=== PATIENT | male | born 1990 | race Caucasian/White ===

== ENCOUNTER 2025-03-07 20:55 | Emergency (ER) | payer OTHER, SELFPAY ==
[2025-03-07 20:56] VITALS: BP 149/90; PULSE 78; RESP 18; TEMP 36.9; O2SAT 98
[2025-03-07 20:58] VITALS: BMI 53.0
--- NOTE | 2025-03-07 21:06 | EDS_ITS ---
HPI <JAGUAR Winchester - Last Filed: 03/07/25 22:01> History of Present Illness Chief Complaint: Upper Extremity Injury Narrative Narrative: Patient was about 4 feet up on a ladder when he lost his balance and fell landing on the back of his right wrist. No head injury or LOC. Denies other injuries. No blood thinners. He has swelling over his wrist and limited extension due to pain. No weakness or numbness or tingling. He is right-hand dominant. PFSH <JAGUAR Winchester - Last Filed: 03/07/25 22:01> [facility] Medical History (Updated 03/07/25 @ 21:21 by JAGUAR Winchester) Brain bleed Medical History no medical history Home Medications ?Medication ?Instructions ?Recorded ?Last Taken ?Type hydrocodone-acetaminophen 5-325mg 1 tab PO Q6H PRN PRN Pain 3 days 03/07/25 Unknown Rx 5mg-325mg #12 TABLETS ondansetron 4 mg disintegrating 4 mg PO Q6H PRN nausea and 03/07/25 Unknown Rx tablet vomiting #12 tabs Allergy/AdvReac Type Severity Reaction Status Date / Time No Known Allergies Allergy Verified 03/07/25 20:58 Family History no significant family his Surgical History (Updated 03/07/25 @ 21:04 by Hiral Yoon) History of tonsillectomy and adenoidectomy Surgical History no surgical history Social History Smoking Status: Current every day smoker tobacco type: cigarettes ROS <JAGUAR Winchester - Last Filed: 03/07/25 22:01> ROS ED ROS Narrative Neuro: Negative for motor/sensory dysfunction. Skin: Negative for wound. Musc: Positive for right wrist pain, swelling, trauma. EXAM <JAGUAR Winchester - Last Filed: 03/07/25 22:01> Physical Exam Narrative Exam Narrative: CONST: Patient sitting in no acute distress. EYES: Normal inspection. HEAD: Normocephalic atraumatic. NECK: Normal inspection. RESP: No respiratory distress, CTAB. CVS: Regular rate and rhythm, no murmur, no gallop. SKIN: Color normal, no rash, warm, dry, intact. EXTREMITIES: Right dorsal wrist swelling and tenderness, limited extension due to pain. No tenderness of the shoulder elbow forearm or hand. Able to make a fist. Normal motor and sensory function in median radial and ulnar distributions. 2+ radial pulse and brisk cap refill. NEURO: Alert and answering questions appropriately. PSYCH: Normal affect. Const Vital Signs: 03/07/25 20:56 Temperature 98.4 F Temperature Source Temporal Pulse Rate 78 Respiratory Rate 18 Blood Pressure 149/90 H Blood Pressure Mean 109 Pulse Ox 98 Oxygen Delivery Method Room Air [facility] <JAGUAR Winchester - Last Filed: 03/07/25 22:01> [facility] Narrative Medical decision making narrative: Differential includes wrist contusion versus fracture Consults: Orthopedics Patient had mechanical fall injuring his right wrist. His dorsal wrist swelling and tenderness. Neurovascularly intact. X-ray shows a comminuted distal radius fracture and ulnar styloid fracture. There is very mild dorsal angulation. I consulted Dr. Davis who reviewed the films and said this does not require a hematoma block or reduction and to place a splint. I placed an AP Ortho-Glass splint. NVI before and after application. Prescribed Andover, given instructions to ice and elevate. Orthopedic follow-up provided. He was discharged in stable condition <Dr. Calixto Stewart DO - Last Filed: 03/07/25 22:53> [facility] Narrative Medical decision making narrative: Differential includes wrist contusion versus fracture Consults: Orthopedics Patient had mechanical fall injuring his right wrist. His dorsal wrist swelling and tenderness. Neurovascularly intact. X-ray shows a comminuted distal radius fracture and ulnar styloid fracture. There is very mild dorsal angulation. I consulted Dr. Davis who reviewed the films and said this does not require a hematoma block or reduction and to place a splint. I placed an AP Ortho-Glass splint. NVI before and after application. Prescribed Andover, given instructions to ice and elevate. Orthopedic follow-up provided. He was discharged in stable condition Attending note: I have personally performed a face to face assessment of the patient and have reviewed the AJAY note. I personally made/approved the management plan and take responsibility for the patient management. I performed a substantive portion of the visit including all aspects of the following. My puentes findings include: [id number] presents follow-up for foot ladder. Pain to right wrist. No head injuries. Exam GCS 15. Right upper extremity swelling dorsal wrist at the radius skin intact. No hand tenderness. No elbow tenderness. Three-view x-ray right wrist concerns for comminuted distal radius fracture interarticular with dorsal tilt. Mild styloid fracture. Discussed with orthopedist on-call Dr. Davis no reduction in the ED will place an AP splint and follow-up with him. Meds to bed with pain medications written. Discharge Plan Triage Chief Complaint: Upper Extremity Injury ED Midlevel Provider: Jodie Smith ED Provider: Calixto Stewart Dx/Rx/DC Orders Clinical Impression: Closed fracture of right distal radius, Fracture of right ulnar styloid, Fall from ladder Instructions: Distal Radius Fx Prescriptions: New hydrocodone-acetaminophen 5-325 mg tablet 1 tab PO Q6H PRN PRN (Reason: Pain) 3 Days Qty: 12 0RF ondansetron 4 mg tablet,disintegrating 4 mg PO Q6H PRN (Reason: nausea and vomiting) Qty: 12 0RF Primary Care Provider: Care Physician,No Primary Referrals: Lenin Davis MD [Med Staff - Active Staff] - NOT,DEFINED [Non-Staff] - Activity Restrictions/Additional Instructions: You can ice over your splint and elevate the arm to decrease swelling. Take Andover every 6 hours as needed for pain. This sometimes causes nausea or vomiting so I prescribed Zofran to take as needed. Andover also causes constipation so I recommend [id number] stool softeners or MiraLAX. Call the orthopedic doctor on Sunday to schedule an appointment. Print Language: Swedish Disposition Disposition: Home, Self Care Discharge Date/Time: 03/07/25 22:14
[2025-03-07] MEDS: HYDROcodone Bitartrate/Apap 5/325 Tablet PO (21:08)
[2025-03-07] MEDS: Ondansetron ODT 4 MG Tablet PO (21:08)
--- NOTE | 2025-03-07 21:12 | RAD_ITS ---
PROCEDURE: WRIST MIN 3 VIEWS 03/07/2025 REASON FOR EXAM: PAIN TECHNIQUE: 3 views of the right wrist COMPARISON: None FINDINGS: Bones: Comminuted and impacted fracture of the distal radius, as well as fracture involving the ulnar styloid. Joints: Normal alignment. Soft tissues: Soft tissue swelling. Other: RAD/Wrist min 3 Views IMPRESSION: Impacted and comminuted fracture of the distal radius, as well as fracture invo lving the ulnar styloid. There is associated soft tissue swelling. Reading Location: [facility]
--- NOTE | 2025-03-07 21:29 | CON.PCM.OR_ITS ---
HPI Consult Data Date of Consult: 03/07/25 HPI Narrative HPI Narrative: NICOLE GAINES, is a 34 M who presents with a right distal radius fracture. Per ED provider 925pm today. Closed nvi. Wondering about utility of a closed reduction [facility] Medical History (Updated 03/07/25 @ 21:21 by JAGUAR Winchester) Brain bleed Medical History no medical history Allergy/AdvReac Type Severity Reaction Status Date / Time No Known Allergies Allergy Verified 03/07/25 20:58 Family History no significant family his Surgical History (Updated 03/07/25 @ 21:04 by Hiral Yoon) History of tonsillectomy and adenoidectomy Surgical History no surgical history Social History Smoking Status: Current every day smoker tobacco type: cigarettes Vital Signs Vital Signs Vital Signs: 03/07/25 20:56 Temperature 98.4 F Temperature Source Temporal Pulse Rate 78 Respiratory Rate 18 Blood Pressure 149/90 H Blood Pressure Mean 109 Pulse Ox 98 Oxygen Delivery Method Room Air Weight Weight: 391 lb 1.601 oz Body Mass Index (BMI) 53.0 Assessment & Plan Assessment/Plan (1) Closed fracture of right distal radius: PLAN: 34 yr M with R intra articular distal radius fracture. Given intra articular nature and displacement of the fracture, would recommend more so toward operative management. A closed reduction would be unlikely to significantly change the slight dorsal angulation here, so recommend a well moulded splint and FU within 3-5 business days in the office as an outpatient to discuss options. ED provider in agreement, no further quesitons or concerns. (2) Fracture of right ulnar styloid:
== END 2025-03-07 22:14 | disposition home or self-care (01) ==
PROVIDERS: Emergency Provider Emergency Medicine; Visit Provider Emergency Medicine
DX: S52.501A Unspecified fracture of the lower end of right radius, initial encounter for closed fracture (principal); W11.XXXA Fall on and from ladder, initial encounter; F17.210 Nicotine dependence, cigarettes, uncomplicated; S52.614A Nondisplaced fracture of right ulna styloid process, initial encounter for closed fracture
CPT/HCPCS: 29125; 73110; 99282

== ENCOUNTER 2025-03-26 07:26 | Day surgery (SDC) | payer SELFPAY ==
[2025-03-26] VITALS (14 sets, daily range): BP systolic 108–137; BP diastolic 45–76; PULSE 70–85; RESP 16–18; TEMP 36.1–36.3; O2SAT 93–100; BMI 51.6
--- NOTE | 2025-03-26 08:00 | RAD_ITS ---
EXAM: DX wrist two views CLINICAL HISTORY: ORIF right wrist COMPARISON: 03/07/2025 TECHNIQUE: Intraoperative fluoroscopy with 3 spot views FINDINGS: Fluoroscopy time 57.3 seconds Cumulative dose 1.01 mGy ORIF of distal radius intra-articular fracture with a dorsal plate and screws appear intact and anatomic. Please see operative report for further detail. RAD/Wrist 2 Views IMPRESSION: Fluoroscopy as above. Reading Location: [id number]
[2025-03-26] MEDS: Lactated Ringers 1,000 ML 15 ML IV (08:12)
--- NOTE | 2025-03-26 08:33 | PCM.PRE.AN2 ---
ASA Classification* ASA Classification ASA Classification: 3 Assessment & Plan Anesthesia* Anesthesia Assessment Anesthesia Assessment: Discussed sedation and/or anesthesia options, risks, benefits, and alternatives with patient/parents/legal guardian/POA. Questions invited. The patient/parents/legal guardian/POA seems to understand and agrees to proceed with anesthesia plan. Reviewed the physical assessment, medical history, allergy history and patient home medications list prior to surgery/procedure/anesthetic and documented any changes. Performed airway and anesthesia risk assessments. Anesthesia Type Anesthesia Type: General and Block (Patient is consented for postop pain block.) History Source History Obtained from:: Patient and Chart Anesthesia Focused Assessment* Temperature: 97 F Pulse Rate: 81 Blood Pressure: 137/75 Respiratory Rate: 16 Pulse Ox: 98 Oxygen Delivery Method: Room Air Airway Assessment Mouth opens: >3 cm Mallampati Score: IV (Full west) Teeth Condition: Chipped/Broken (Patient has couple of of chipped teeth on the left side.) and Missing (Patient has 1 missing tooth right upper. 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 When Was Last Pacemaker Check QUESTION #4 FULL TEXT: You/Your Family Experience fever (hyperthermia) with Anesthesia Last Oral Intake Last Oral intake: Last Oral Intake NPO since 03:00 03/26/25 08:06 Meds taken in AM with sips of No 03/26/25 08:06 water? 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 apprentice Female No 03/23/25 14:54 HX of Motion Sickness No 03/23/25 14:54 HX of N/V After Surgery No 03/23/25 14:54 Non-Smoker No 03/23/25 14:54 Duration of Surgery greater Yes 03/23/25 14:54 than 60 minutes Number of Risk Factors 1 03/23/25 14:54 PONV Score Low Risk 03/23/25 14:54 Height & Weight Height & Weight: Anesthesia: Height & Weight Height 6 ft 03/26/25 08:06 Weight: 172.6 kg 03/26/25 08:06 Body Mass Index (BMI) 51.6 03/26/25 08:06 Respiratory Assessment Respiratory Assessment - lithographic press operator apprentice: Respiratory Tract Infection Hx - lithographic press operator apprentice Hx Respiratory Tract Infection No 03/23/25 14:54 STOP Sleep Apnea STOP Sleep Apnea - lithographic press operator apprentice: STOP Sleep Apnea - lithographic press operator apprentice Hx Hypertension No 03/23/25 14:54 Hx Sleep Apnea No 03/23/25 14:54 CPAP BIPAP Do you snore loudly (louder Yes 03/23/25 14:54 than talking or can be heard Do you often feel tired/ No 03/23/25 14:54 fatigued/ sleepy during daytime? Has anyone observed you stop No 03/23/25 14:54 breathing during sleep? STOP Results Negative 03/23/25 14:54 QUESTION #5 FULL TEXT : Do you snore loudly (louder than talking or can be heard through closed doors)? Tobacco Use History Tobacco Use History - lithographic press operator apprentice: Tobacco Use History - lithographic press operator apprentice Tobacco Use Smoking Status former smoker. 03/23/25 14:54 Hx Tobacco Use Yes 03/23/25 14:54 Years Smoking Packs Smoked per Day Smoking Cessation Date was within the last 15 years Hx Smoking Cessation Date Hx Smoking Cessation Counseling Any additional information?: Yes Tobacco Use: Chew (Patient occasionally chews nicotine pouches. 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 Specify any problems Hx of Preganancy in last 3 N/A 03/23/25 14:54 Months Nurse Filling Out Transfusion DSCHRIBER 03/23/25 14:54 & Questions: Date: 03/23/25 03/23/25 14:54 Time: 14:56 03/23/25 14:54 Patient unable to answer at this time (ie. confused, unrespo /Reproduction History /Reproductive History - lithographic press operator apprentice: /Reproductive Hx- lithographic press operator apprentice Hx Now No 03/23/25 14:54 Gestational Age (in weeks): EDC: Hx Hx Para Hx Section SAB No 03/23/25 14:54 Active Medications Active Medications: Current Medications Generic Name Dose Route Start Last Admin Trade Name Freq PRN Reason Stop Dose Admin Cefazolin Sodium 3 gm/ Sodium 115 mls @ 150 mls/hr 03/26/25 09:00 Chloride IV 03/26/25 09:45 INTRAOP ONE Lactated Ringer's 1,000 mls @ 15 mls/hr 03/26/25 07:45 03/26/25 08:12 IV 15 mls/hr .Q48H TRINIDAD Administration PFSH Medical History Alcohol use Injury of head and neck Tobacco chew use Shortness of breath on exertion Leg cramps Brain bleed Home Medications ?Medication ?Instructions ?Recorded ?Last Taken ?Type hydrocodone-acetaminophen 5-325mg 1 tab PO Q6H PRN PRN Pain 3 days 03/13/25 03/25/25 Rx 5mg-325mg #12 TABLETS ibuprofen 400 mg tablet (IBU) 400 mg PO TID PRN pain 03/23/25 03/25/25 History multivitamin (Daily Multi-Vitamin 1 tab PO DAILY 03/23/25 Unknown History tablet) Allergy/AdvReac Type Severity Reaction Status Date / Time No Known Allergies Allergy Verified 03/26/25 07:55 Surgical History History of tonsillectomy and adenoidectomy Social History Smoking Status: Former smoker Review of Systems (Anesthesia) ROS Narrative System reviewed and no additional complaints, except as documented.
--- NOTE | 2025-03-26 09:09 | PCM.HP.STD ---
HPI - General HPI Narrative NICOLE GAINES, is a 34 M who presents for right distal radius ORIF. no changes to h and p. ok to proceed. right wrist marked. rab, post op instructions and narcotic counselling. no further questions. MR#: [id number] Acct: [id number] Name: NICOLE GAINES Rep #: [id number] : 1990 Provider: Dr. Lenin Davis MD Age/Sex: 34/M Location: [facility] [place].ALISTAIR Status: Signed Intake Vital Signs 03/09/2510:18 Height 6 ft Intake Visit Reasons: wrist Chief Complaint: right wrist-discuss suregry Accompanied by: Self Allergies No Known Allergies Allergy (Verified 03/19/25 10:45) Medications ?Medication ?Instructions ?Recorded ?Confirmed ?Type hydrocodone-acetaminophen 5-325mg 1 tab PO Q6H PRN PRN Pain 3 days 03/13/25 03/19/25 Rx 5mg-325mg #12 TABLETS PFSH Medical History Brain bleed Surgical History History of tonsillectomy and adenoidectomy Social History Smoking Status: Current every day smoker tobacco type: cigarettes HPI wrist Details: This documentation accurately reflects the service provided and the decisions made by me, Dr. Lenin Davis MD 03/19/25 0889. Part of today?s visit was documented by [ ], acting as scribe. NICOLE GAINES is a 34 year old M here today for 2 weeks follow-up right distal radius fracture. Patient was deciding on insurance versus self-pay at last time we spoke and wants to rediscuss. Patient interested to proceed with surgery at this point. Coding Level of Care Code Off vis,est,level 4 Diagnoses Closed fracture of right distal radius S52.501A Assessment and Plan Assessment and Plan (1) Closed fracture of right distal radius: Status: Acute Plan: NICOLE GAINES is a 34 year old M here today for 2 weeks follow-up right distal radius fracture. Patient wants to go ahead with open reduction internal fixation right distal radius. Discussed pros cons risk benefits of continued nonoperative management versus surgery. The patient understands we will try to get this done as soon as possible. Pros and cons risks and benefits were discussed with the patient including but not limited to infection, pain, stiffness, bleeding, damage to surrounding structures, neurovascular injury, recurrence or retear, failure or wear of hardware or fixation, instability, fracture, deep vein thrombosis and pulmonary embolism, anesthetic risks, , patient dissatisfaction, need for further surgery and other risks. Patient understood and wished to proceed with surgery, and signed the informed consent documentation. Ortho Exam General General: Yes no acute distress Neurologic: Yes alert and Yes oriented x3 Psychologic: Yes reasonable and appropriate Right Wrist/Hand Skin/Wound: Yes CDI, Yes Swelling (mild), No Ecchymosis, Yes nail intact and Yes capillary refill normal Sensation: Radial: I, Ulnar: I and Median: I Left Wrist/Hand Skin/Wound: Yes Swelling (mild) and No Ecchymosis PFSH Medical History Alcohol use Injury of head and neck Tobacco chew use Shortness of breath on exertion Leg cramps Brain bleed Home Medications ?Medication ?Instructions ?Recorded ?Last Taken ?Type hydrocodone-acetaminophen 5-325mg 1 tab PO Q6H PRN PRN Pain 3 days 03/13/25 03/25/25 Rx 5mg-325mg #12 TABLETS ibuprofen 400 mg tablet (IBU) 400 mg PO TID PRN pain 03/23/25 03/25/25 History multivitamin (Daily Multi-Vitamin 1 tab PO DAILY 03/23/25 Unknown History tablet) Allergy/AdvReac Type Severity Reaction Status Date / Time No Known Allergies Allergy Verified 03/26/25 07:55 Surgical History History of tonsillectomy and adenoidectomy Social History Smoking Status: Former smoker Vital Signs Vital Signs Vital Signs: 03/26/25 08:06 03/26/25 08:06 03/26/25 08:42 Temperature 97 F L 97 F L Temperature Source Temporal Pulse Rate 81 81 Respiratory Rate 16 16 Respiratory Pattern Normal Blood Pressure 137/75 H 137/75 H Blood Pressure Mean 95 Blood Pressure Source Monitor Blood Pressure Position Supine Blood Pressure Location Left Arm Pulse Ox 98 98 Oxygen Delivery Method Room Air Room Air Weight Weight: 380 lb 8.285 oz Body Mass Index (BMI) 51.6
[2025-03-26] MEDS: Cefazolin 3 GM in 0.9% Normal Saline (100mL Bag) 100 ML IV (09:42)
[2025-03-26] MEDS: Bupivacaine 0.25% 30 ML Vial (09:46)
--- NOTE | 2025-03-26 10:42 | PCM.OPRPT ---
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 Provider Contracting Consultant: joann Tasks completed by anesthesiologist assistant: Retracting Additional assistant terminal manager?: No Type of Anesthesia: General and Local RN Documented Start/Stop Times: Operation Date: 03/26/25 09:00 Case Time Into Pre-Op 03/26/25 07:36 Out of Pre-Op 03/26/25 09:17 Anesthesia Start 03/26/25 09:26 Into Room 03/26/25 09:26 Procedure Start 03/26/25 09:45 Procedure End 03/26/25 10:40 Procedure Start Time: 09:45 Procedure Stop Time: 10:40 Select all DRAINS/GRAFTS/IMPLANTS that apply: Implanted device Implanted device details: Arthrex distal radius precontoured volar locking plate Estimated Blood Loss: 50 Specimen collected: No Description of surgery: Patient brought to the operating room theater. Placed supine on the table. SCDs on the legs. All bony prominences padded. General anesthesia induced. 3 g IV Ancef administered prior to the start of the procedure. Arm table to the patient's right side. Tourniquet applied to the right upper extremity appropriately padded. Bed turned 90 degrees. Upper extremity prepped and draped in the usual sterile fashion with chlorhexidine-based prep solution allowing over 3 minutes drying time prior to draping. Preoperative timeout performed to confirm the site patient and the surgery. Began by elevating the limb exsanguinating the limb with sterile Esmarch inflating the tourniquet to 250 mmHg. Made a standard volar incision over the FCR tendon. Carried the dissection down through skin and subcutaneous tissue achieved meticulous hemostasis. Incised the FCR sheath as well as the subsheath and retracted the tendon radially. Identified crossing vessels ligated these. Retracted FPL ulnarly. Identified the pronator quadratus. Made an L-shaped incision in that retracted it ulnarly. Identified the fracture site. Mobilized any preliminary callus formation. Reduce the fracture anatomically. Used direct in line mobilization and traction. Selected an Arthrex precontoured volar locking plate with 3 proximal holes. I placed this appropriately on the bone preliminary secured using K wires. Took radiographs to ensure that the plate was appropriately placed the plate was well contoured along the volar surface and just proximal of the articular surface. Ensured that the distal locking screws had good trajectory using a preliminary K wire as well. I then inserted the 3.5 mm fully threaded cortical screw at the oblong hole proximally. Achieve good fixation. I then I inserted two 2.4 mm fully threaded cortical locking screws at the distal end of the plate. I then inserted the other 2 proximal screws followed by another 5 distally. This achieved good fixation in the bone good reduction of the articular surface. There were 2 articular fragments these were well aligned. Good radial inclination and volar tilt. slight dorsal comminution. I ensured to fix the volar ulnar corner fragment. I took final radiographs AP lateral and true lateral 30 degrees tilt to ensure no screw penetration. Final radiographs taken and saved onto the system. Tourniquet let down wound thoroughly irrigated. Hemostasis achieved. 2-0 Vicryl and 3-0 Monocryl used to close the skin and subcutaneous tissue. 5 cc of quarter percent local was used at the start of the case. Wound cleaned with wet and dry dressing followed by Steri-Strips Adaptic 4 x 4 gauze sterile cast padding and a volar prefabricated fiberglass splint overwrapped loosely with Thierno wrap. Patient woken up from a general anesthetic transferred off the operating room table and taken to postanesthetic care unit in stable condition. All sponge needle instrument counts were correct no complications plan for the patient discharge home operative day surgery criteria finger and elbow use but no lifting or heavy gripping. CPT 75570 Surgical Findings: As above Complications Complications: No Admit VTE Documentation VTE Present on Admission: No VTE Mechan Device Prophylaxis: SCD's VTE Pharm Prophylaxis ordered?: No Reason prophylaxis not ordered: Treatment Not Indicated
--- NOTE | 2025-03-26 10:50 | EX.PCM.DISCH ---
Discharge Instructions Diet Discharge Diet: No restrictions Activity Weight Bearing Status: No weight bearing Lifting Restrictions: no lifting Keep extremity elevated above heart level: Operative Extremity Additional Activity Instructions:: ok for finger and elbow ROM Dressing / Incision Call your doctor if your incision/area has: Continuous Slow Oozing, Sudden Increased Bleeding, Increased Pain/ Swelling, Increased Redness, Foul Smelling Discharge and Swelling at the incision site Call your doctor if you observe: Fever of 101 or Higher, Coldness, Increased Pain and Numbness or Tingling Change Dressing in: leave in place till F/U Cleanse incision/area with: Do not get Incision Wet Follow Up Care Please Follow Up With: Lenin Davis MD When: next week Test Results: Test results from this visit will be discussed in further detail at your follow-up appointment, if applicable. Discharge Plan Admission Attending Provider: Lenin Davis Primary Care Provider: Care Physician,Jes Primary Instructions Patient Instructions: Distal Radius Fx Print Language: Upper Sorbian Discharge Orders/Prescriptions Prescriptions: New oxycodone-acetaminophen [Endocet] 5-325 mg tablet 1 tab PO Q4H MDD 6 PRN (Reason: pain) 3 Days Qty: 20 0RF No Action ibuprofen [IBU] 400 mg tablet 400 mg PO TID PRN (Reason: pain) multivitamin [Daily Multi-Vitamin] Tablet 1 tab PO DAILY hydrocodone-acetaminophen 5-325 mg tablet 1 tab PO Q6H PRN PRN (Reason: Pain) 3 Days Qty: 12 0RF Referrals / Follow Up: Lenin Davis MD [Med Staff - Active Staff] - Care Physician,No Primary [Primary Care Provider] - Disposition Disposition (needs filled in before D/C Order can be placed): Home, Self Care
--- NOTE | 2025-03-26 13:32 | PCM.POST.ANE ---
Anesthesia: Postop Eval I Current Vital Signs Temperature: 97.4 F Pulse Rate: 75 Blood Pressure: 114/67 Respiratory Rate: 18 Pulse Ox: 98 Oxygen Delivery Method: Room Air Assessment Airway patent: Yes Spontaneous unlabored respirations: Yes nausea: No Vomiting: No Anesthesia Complication: No Fluid Hydration Crystalloid volume administer (ml): 1,000 Total IV fluid infused: 1,000 Progress Note Anesthesia document: Postop Eval 1 completed: Yes
--- NOTE | 2025-03-26 15:36 | POSTOPAN2_ITS ---
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
--- NOTE | 2025-03-26 15:36 | PCM.POSTANE2 ---
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
== END 2025-03-26 13:44 | disposition home or self-care (01) ==
LOC: SDC 07:30 → AC 07:33
PROVIDERS: Referring Provider Orthopaedic Surgery Sports Medicine; Visit Provider Orthopaedic Surgery Sports Medicine
PROC: (CPT 25608; principal; 2025-03-26 08:40)
DX: S52.501A Unspecified fracture of the lower end of right radius, initial encounter for closed fracture (principal); X58.XXXA Exposure to other specified factors, initial encounter; F17.210 Nicotine dependence, cigarettes, uncomplicated; F17.220 Nicotine dependence, chewing tobacco, uncomplicated
CPT/HCPCS: 25608; 64417; 01830; 73100; 76000; C1713; J2405